=== PATIENT | female | born 1985 | race Caucasian/White ===

== ENCOUNTER 2021-07-28 11:41 | Emergency (ER) | payer OTHER, SELFPAY ==
[2021-07-28 12:11] VITALS: BP 138/93; PULSE 74; RESP 18; TEMP 36.8; O2SAT 98
--- NOTE | 2021-07-28 13:37 | ED.EAR ---
HPI - Ear Problem General Chief complaint: Ear Stated complaint: Rt ear pain Source: patient and RN notes reviewed Limitations: no limitations History of Present Illness HPI Narrative: The patient, previously mostly healthy, presents with hearing discomfort. Patient states she has at least 1/2-month history of decreased hearing acuity associated with muffling of her right ear. This is associated with mild tinnitus that developed as hearing decreased. No injury, fever, URI?sinusitis, discharge, FB, OTC interventions Related Data Home Medications Medication Instructions Recorded Confirmed No Home Medications 07/28/21 07/28/21 Allergies Allergy/AdvReac Type Severity Reaction Status Date / Time No Known Allergies Allergy Unverified 07/28/21 12:25 Review of Systems Review of Systems: General/Constitutional: No weight loss,fever Eyes: N0: Redness,discharge Ears/Nose/Throat: No: Epistaxis,ear discharge Respiratory: Denies: Hemoptysis Gastrointestinal: No Vomiting, Bleeding-rectal Skin: No Lumps, eruption Neurologic: No Focal Weakness,Sz Hematologic: Denies: Petechiae/Purpura Psychiatric: No: Suicida ideationl All Other Systems: Reviewed and Negative PMFSH Comments At time of signature, agree with nursing past medical, surgical, social and family history. There is no relevant family history pertinent to the presenting complaint Exam Narrative: General Appearance: Well appearing, Well nourished, No distress EYE: PERRLA , EOMI Ears: Left TM normal, right TM obscured by wax; external ear normal, Auditory canal normal Nose: Normal nose, Nares clear Mouth/Throat: Normal appearing, Normal lips Neck: Supple, No adenopathy Respiratory: Airway patent, No respiratory distress Skin: Warm, Dry Neurological: A&O x3, CN II-X intact Psychiatric: Normal mood, Normal affect Course Vital Signs Vital signs: Vital Signs Temperature 98.3 F 07/28/21 12:11 Pulse Rate 74 07/28/21 12:11 Respiratory Rate 18 07/28/21 12:11 Blood Pressure 138/93 H 07/28/21 12:11 Pulse Oximetry 98 07/28/21 12:11 Temperature 98.3 F 07/28/21 12:11 Pulse Rate 74 07/28/21 12:11 Respiratory Rate 18 07/28/21 12:11 Blood Pressure 138/93 H 07/28/21 12:11 Pulse Oximetry 98 07/28/21 12:11 Medical Decision Making Vital Signs Vital Signs: Vital Signs Temperature 98.3 F 07/28/21 12:11 Pulse Rate 74 07/28/21 12:11 Respiratory Rate 18 07/28/21 12:11 Blood Pressure 138/93 H 07/28/21 12:11 Pulse Oximetry 98 07/28/21 12:11 Temperature 98.3 F 07/28/21 12:11 Pulse Rate 74 07/28/21 12:11 Respiratory Rate 18 07/28/21 12:11 Blood Pressure 138/93 H 07/28/21 12:11 Pulse Oximetry 98 07/28/21 12:11 Discharge Plan Discharge Clinical Impression: Impacted ear wax Patient Disposition: Home, Self-Care Condition: Stable Additional Instructions: Try OTC preparations per handout-peroxide seems to work as well /better than Debrox Prescriptions: No Action No Home Medications RF: 0 Follow-up/Referrals: UNKNOWN,DOCTOR [Primary Care Provider] -
== END 2021-07-28 12:57 | disposition home or self-care (01) ==
PROVIDERS: Emergency Provider Emergency Medicine
DX: H61.21 Impacted cerumen, right ear (principal)
CPT/HCPCS: 99211; G0463

== ENCOUNTER 2024-04-07 13:10 | Emergency (ER) | payer OTHER, SELFPAY ==
--- NOTE | 2024-04-07 13:18 | ED.EAR ---
HPI - Ear Problem General Chief complaint: Ear Stated complaint: RT Ear pain Time Seen by Provider: 04/07/24 13:17 Source: patient Mode of arrival: ambulatory Limitations: no limitations History of Present Illness HPI Narrative: Yris is a 38-year-old female who presents with complaints of right ear pain x3 days. She reports having pain in her right ear that radiates into her neck and jaw x 1 week. Has been having congestion as well. Highest fever of 101F. Been taking tylenol/motrin for pain. Related Data Allergies Allergy/AdvReac Type Severity Reaction Status Date / Time No Known Allergies Allergy Verified 04/07/24 13:28 Review of Systems Review of Systems: Pertinent positives per HPI. Patient denies any rash, headache, visual changes, dizziness, sore throat, shortness of breath, chest pain, palpitations, nausea, vomiting, diarrhea, constipation, abdominal pain, or any urinary issues. PMFSH Comments At the time of my signature, I reviewed and agree with the nursing past medical, surgical, social, and family history. There is no relevant family history pertinent to the patient complaint. Exam Narrative: General: Well-developed, well nourished, in no apparent distress Head: Normocephalic, atraumatic Eyes: Pupils equally round and reactive to light bilaterally, EOM intact, sclera and conjunctive clear, no discharge, lids normal Ears: TMs intact and clear, ear canals ceruminous, no drainage, grossly hearing normal. Nose: Nares patent, clear discharge, no inflammation, no sinus tenderness. Mouth: Oropharynx without lesions or masses, poor dentition, MMM. Dental infection to tooth number 2 Neck: Supple, trachea midline, no enlargement of anterior or posterior cervical nodes, no thyroid masses or goiter palpable. Cardio: Regular rate and rhythm, s1 and s2 normal, no murmur appreciated. Resp: Clear to auscultation bilaterally anteriorly and posteriorly, no rhonchi, rales, wheezing or rubs Course Course Emergency Course: Portions of this record may have been created with voice recognition software. Level of Care: Express Care Visit Vital Signs Vital signs: Vital signs reviewed Medical Decision Making MDM Narrative Medical decision making narrative: At the time of visit patient is resting comfortably on the exam table. Patient appears to be nontoxic. Plan: I suspect patient has a dental infection, otalgia, eustachian tube dysfunction. Prescription for Augmentin and prednisone was sent to the pharmacy. Supportive measures were discussed with the patient and they voiced understanding discharge instructions and agrees to treatment plan. Return precautions reviewed Differential Diagnosis Differential Diagnosis: Otitis media, otitis sternum eustachian tube dysfunction, cerumen impaction, upper respiratory infection, dental infection, serous otitis, mastoiditis Discharge Plan Discharge Clinical Impression: Dental infection Acute otalgia Qualifiers: Laterality: right Qualified Code(s): H92.01 - Otalgia, right ear ETD (eustachian tube dysfunction) Qualifiers: Laterality: right Qualified Code(s): H69.91 - Unspecified Eustachian tube disorder, right ear Patient Disposition: Home, Self-Care Condition: Stable Instructions: Antibiotic Form, Earache (ED), Toothache (ED) Additional Instructions: Take any prescribed medications only as directed-Augmentin and prednisone Tylenol/motrin as needed for pain May use heating pad to alleviate pain Follow up with ENT if needed. Follow up with your PCP in 3-5 days if symptoms persist. Follow-up with your dentist as soon as possible Prescriptions: New prednisone 20 mg tablet 40 mg PO DAILY 5 Days Qty: 10 0RF amoxicillin-pot clavulanate 875-125 mg tablet 1 tablet PO Q12H 10 Days Qty: 20 0RF Follow-up/Referrals: UNKNOWN,DOCTOR [Non-Staff] - Stand Alone Forms: Work/School Release IP Time of Disposition: 13:47
[2024-04-07 13:29] VITALS: BP 136/98; PULSE 66; RESP 16; TEMP 36.6; O2SAT 100
== END 2024-04-07 13:56 | disposition home or self-care (01) ==
PROVIDERS: Emergency Provider Nurse Practitioner Family
DX: K04.7 Periapical abscess without sinus (principal); H92.01 Otalgia, right ear; H69.91 Unspecified Eustachian tube disorder, right ear
CPT/HCPCS: 99213; G0463